=== PATIENT | female | born 1975 | race African-American/Black ===

== ENCOUNTER 2016-11-12 08:55 | Emergency (ER) | payer OTHER ==
[~2016-11-12] VITALS: Ht 167.6 cm; Wt 88.9 kg
[~2016-11-12 08:55] MED LIST: IBUPROFEN 600600 M1 PO; KEFLEX500 M1 PO; PEPCID40 MG PO
[2016-11-12 08:56] VITALS: BP 114/67
[2016-11-12] MEDS ORDERED: PROVENTIL HFA6.7 G1 INH (09:11)
[2016-11-12] MEDS ORDERED: TESSALON PERLE100 MG PO (09:11)
== END 2016-11-12 09:28 | disposition home or self-care (01) ==
LOC: ER 08:55
DX: J20.9 Acute bronchitis, unspecified (principal); Z98.890 Other specified postprocedural states; F17.210 Nicotine dependence, cigarettes, uncomplicated; F12.10 Cannabis abuse, uncomplicated